=== PATIENT | male | born 2000 | race Hispanic/Latino ===

== ENCOUNTER 2023-03-27 08:30 | Emergency (ER) | payer SELFPAY ==
[2023-03-27] MEDS: Oxymetazoline 0.05% Nasal Spray 30 ML Bottle NAS ONE (08:57)
[2023-03-27] MEDS: Tranexamic Acid 1,000 MG/10 ML Vial ONE (10:29)
== END 2023-03-27 10:43 | disposition home or self-care (01) ==
LOC: MW.ED 08:30
DX: R04.0 Epistaxis (principal)
CPT/HCPCS: 30905; 99283; A9270

== ENCOUNTER 2024-02-09 17:12 | Emergency (ER) | payer OTHER | END 2024-02-09 19:10 | disposition home or self-care (01) | LOC: MW.ED 17:12 | DX: S09.90XA Unspecified injury of head, initial encounter (principal); Z75.8 Other problems related to medical facilities and other health care; Z86.16 Personal history of COVID-19; Z90.49 Acquired absence of other specified parts of digestive tract; Z91.048 Other nonmedicinal substance allergy status; V89.9XXA Person injured in unspecified vehicle accident, initial encounter | CPT/HCPCS: 70450; 70450-26; 72125; 72125-26; 99284 ==

== ENCOUNTER 2025-01-14 20:33 | Emergency (ER) | payer OTHER ==
[2025-01-14] MEDS ORDERED: Sodium Chloride 0.9% 2.5 ML Syringe FLUSH PRN (20:54)
[2025-01-14] MEDS ORDERED: Sodium Chloride 0.9% 10 ML Syringe FLUSH PRN (20:54)
[2025-01-14 21:04] LABS: BASOPHILS ABSOLUTE AUTO 0.07 K/uL (0.00-0.20); BASOPHILS PERCENT AUTO 0.7 % (0.0-1.0); EOSINOPHILS ABSOLUTE AUTO 0.16 K/uL (0.00-0.45); EOSINOPHILS PERCENT AUTO 1.6 % (0.0-6.0); IMMATURE GRAN ABSOLUTE AUTO 0.04 K/uL (0.00-0.05); IMMATURE GRAN PERCENT AUTO 0.4 % (0.0-0.4); LYMPHOCYTES ABSOLUTE AUTO 2.31 K/uL (1.00-4.80); LYMPHOCYTES PERCENT AUTO 23.7 % (24.0-44.0); MEAN PLATELET VOLUME 9.3 fL (9.4-12.4); MONOCYTES ABSOLUTE AUTO 0.31 K/uL (0.00-0.80); MONOCYTES PERCENT AUTO 3.2 % (0.0-8.0); NEUTROPHILS ABSOLUTE AUTO 6.85 K/uL (1.80-7.70); NEUTROPHILS PERCENT AUTO 70.4 % (41.0-71.0); NRBC ABSOLUTE 0.00 K/uL (0.00-0.02); NRBC PERCENT 0.0 /100WBC (0.0-0.2); PLATELET COUNT,PLT 315 K/uL (150-400); RED BLOOD CELL COUNT 4.73 M/uL (4.52-5.90); WHITE BLOOD CELL COUNT,WBC 9.74 K/uL (3.9-11.3)
[2025-01-14] MEDS: Iopamidol 755 MG/ML 500 ML Multipack Bottle IVPUSH STA (21:24)
[2025-01-14 21:26] LABS: A/G RATIO 0.9 (0.9-1.6); ALANINE AMINOTRANSFERASE,ALT 17 IU/L (14-63); ASPARTATE AMNIOTRANSFERASE,AST 17 IU/L (15-37); BILIRUBIN TOTAL 0.3 mg/dL (0.2-1.0); BLOOD UREA NITROGEN,BUN 13 mg/dL (7.0-18.0); CARBON DIOXIDE,CO2 30.6 mmol/L (21.0-32.0); CHLORIDE,CL 104 mmol/L (98-107); CREATININE 0.9 mg/dL (0.8-1.3); GLUCOSE RANDOM 102 mg/dL (74-106); POTASSIUM,K 3.8 mmol/L (3.5-5.1); PROTEIN TOTAL,TP 7.6 g/dL (6.4-8.2); SODIUM,NA 140 mmol/L (136-148)
[2025-01-14 21:27] LABS: INR 1.03 (0.86-1.11); PTT,PARTIAL THROMBOPLSTIN TIME 26.9 SEC (23.9-30.7)
[2025-01-14 21:36] LABS: ESTIMATED GFR 123 mL/min (>60)
[2025-01-14 21:37] LABS: ETHANOL BLOOD MEDICAL < 3.0 mg/dL
== END 2025-01-14 22:26 | disposition home or self-care (01) ==
LOC: MW.ED 20:33
DX: M54.2 Cervicalgia (principal); R07.89 Other chest pain; M54.6 Pain in thoracic spine; Z90.49 Acquired absence of other specified parts of digestive tract; Z91.048 Other nonmedicinal substance allergy status; V49.40XA Driver injured in collision with unspecified motor vehicles in traffic accident, initial encounter; Y92.410 Unspecified street and highway as the place of occurrence of the external cause
CPT/HCPCS: 36415; 70450; 71260; 72125; 74177; 80053; 80307; 83690; 85025; 85610; 85730; 99284; A9270; Q9967; 99283